=== PATIENT | male | born 1980 | race Two or more races ===

== ENCOUNTER 2018-01-13 04:28 | Emergency (ER) | payer OTHER ==
[2018-01-13] MEDS ORDERED: KETOROLAC TROMETHAMINE INJ/PF 30 MG/1 ML SDV IV ONE (05:05)
--- NOTE | 2018-01-13 05:10 | ER Document Report ---
ED Medical Screen (RME) - General Chief Complaint: Breathing Difficulty Stated Complaint: SHORTNESS OF BREATH Time Seen by Provider: 01/13/18 04:51 Notes: Patient is a 37-year-old male with a chief complaint of lower right-sided chest pain. He states the pain started at 8:30 last night. He attempted to drink jackie prateek, but ended up throwing it up. He denies any past medical history. He has a history of left eye surgery. TRAVEL OUTSIDE OF THE [place] IN LAST 30 DAYS: No - Related Data Allergies/Adverse Reactions: No Known Allergies Allergy (Unverified 06/17/14 09:30) Past Medical History - Immunizations Hx Diphtheria, Pertussis, Tetanus Vaccination: No Physical Exam - Vital signs Vitals: Temp Pulse Resp BP Pulse Ox 97.7 F 101 H 20 148/99 H 98 01/13/18 04:33 01/13/18 04:33 01/13/18 04:33 01/13/18 04:33 01/13/18 04:33 - Respiratory Respiratory status: No respiratory distress - Cardiovascular Rhythm: Regular - Abdominal Tenderness: Tender - Right upper quadrant Course - Vital Signs Vital signs: Temp Pulse Resp BP Pulse Ox 97.7 F 101 H 20 148/99 H 98 01/13/18 04:33 01/13/18 04:33 01/13/18 04:33 01/13/18 04:33 01/13/18 04:33 Doctor's Discharge - Discharge Referrals: TRACY ROSENBAUM MD [Primary Care Provider] - Follow up as needed
--- NOTE | 2018-01-13 05:30 | RADIOLOGY REPORT (SQ) ---
EXAM DESCRIPTION: XR CHEST 1 VIEW COMPLETED DATE/TME: 01/13/2018 05:03 CLINICAL HISTORY: 37 years, Male, chest pain COMPARISON: None. NUMBER OF VIEWS: 1 TECHNIQUE: Frontal view the chest LIMITATIONS: None. FINDINGS: Heart size is normal. Lungs are clear. No pneumothorax. IMPRESSION: Negative chest 2010 [facility] [employer]- All Rights Reserved
[2018-01-13 05:42] LABS: ABSOLUTE BASOPHILS # (AUTO) 0.1 10^3/uL (0.0-0.2); ABSOLUTE EOSINOPHILS # (AUTO) 0.1 10^3/uL (0.0-0.6); ABSOLUTE LYMPHOCYTES (AUTO) 2.2 10^3/uL (0.5-4.7); ABSOLUTE MONOCYTES (AUTO) 0.5 10^3/uL (0.1-1.4); ABSOLUTE NEUT (AUTO) 4.6 10^3/uL (1.7-8.2); BASOPHILS % (AUTO) 0.9 % (0-2); HEMOGLOBIN 15.2 g/dL (13.5-17.0); LYMPHOCYTES % (AUTO) 30.1 % (13-45); MEAN CORPUSCULAR HGB CONC 35.3 g/dL (32.0-36.0); MEAN CORPUSCULAR VOLUME 91 fl (80-97); MONOCYTES % (AUTO) 6.5 % (3-13); PLATELET COUNT 244 10^3/uL (150-450); RED BLOOD COUNT 4.75 10^6/uL (4.35-5.55); SEGMENTED NEUTROPHILS % (AUTO) 61.5 % (42-78); TOTAL CELLS COUNTED % (AUTO) 100 %; WHITE BLOOD COUNT 7.4 10^3/uL (4.0-10.5)
[2018-01-13 06:00] LABS: ALANINE AMINOTRANSFERASE 37 U/L (21-72); ALBUMIN 4.6 g/dL (3.5-5.0); ALKALINE PHOSPHATASE 76 U/L (38-126); ANION GAP 13 (5-19); ASPARTATE AMINO TRANSFERASE 29 U/L (17-59); BILIRUBIN,DIRECT 0.3 mg/dL (0.0-0.4); BILIRUBIN,TOTAL 0.5 mg/dL (0.2-1.3); BLOOD UREA NITROGEN 16 mg/dL (7-20); CALCIUM 9.1 mg/dL (8.4-10.2); CARBON DIOXIDE 23 mmol/L (22-30); CHLORIDE 110 mmol/L (98-107); GLUCOSE 123 mg/dL (75-110); POTASSIUM 4.7 mmol/L (3.6-5.0); SODIUM 146.3 mmol/L (137-145); TOTAL PROTEIN 7.4 g/dL (6.3-8.2)
--- NOTE | 2018-01-13 06:34 | RADIOLOGY REPORT (SQ) ---
EXAM DESCRIPTION: US ABDOMEN LIMITED COMPLETED DATE/TME: 01/13/2018 05:04 CLINICAL HISTORY: 37 years, Male, RUQ pain COMPARISON: None. TECHNIQUE: Transverse and longitudinal sonographic images of the right upper quadrant LIMITATIONS: None. FINDINGS: Echogenic appearance to the liver consistent with fatty infiltrative change. No definitive gallstones. The CBD measures 1.7 mm. No gallbladder wall thickening or pericholecystic fluid. The pancreas is not well seen due to bowel gas. There is no ascites. The visualized portions of the right kidney are unremarkable. IMPRESSION: Fatty infiltrative change to the liver. Remainder is unremarkable. 2011 [email or web address]- All Rights Reserved
--- NOTE | 2018-01-13 07:17 | ER Document Report ---
ED General - General Chief Complaint: Abdominal Pain Stated Complaint: Abdominal pain Time Seen by Provider: 01/13/18 04:51 TRAVEL OUTSIDE OF THE [place] IN LAST 30 DAYS: No - HPI Patient complains to provider of: Abdominal pain Notes: Patient coming in for abdominal pain. Patient states started on the night not feeling good. Patient states it occurred approximately 2-3 hours after eating. Patient on my evaluation complains of right upper quadrant abdominal pain. Patient denies any recent surgery to his abdomen states he does have left eye surgery. Patient states she is having some nausea vomiting no diarrhea no fevers or chills. Patient otherwise upon my evaluation is resting comfortably. - Related Data Allergies/Adverse Reactions: No Known Allergies Allergy (Unverified 06/17/14 09:30) Past Medical History - Social History Smoking Status: Current Every Day Smoker Family History: None Patient has suicidal ideation: No Patient has homicidal ideation: No Renal/ Medical History: Denies: Hx Peritoneal Dialysis Past Surgical History: Reports: Hx Orthopedic Surgery - neck - Immunizations Hx Diphtheria, Pertussis, Tetanus Vaccination: No Review of Systems - Review of Systems Constitutional: No symptoms reported EENT: No symptoms reported Cardiovascular: No symptoms reported Respiratory: No symptoms reported Gastrointestinal: Abdominal pain Genitourinary: No symptoms reported Male Genitourinary: No symptoms reported Musculoskeletal: No symptoms reported Skin: No symptoms reported Hematologic/Lymphatic: No symptoms reported Neurological/Psychological: No symptoms reported -: Yes All other systems reviewed and negative Physical Exam - Vital signs Vitals: Temp Pulse Resp BP Pulse Ox 97.7 F 101 H 20 148/99 H 98 01/13/18 04:33 01/13/18 04:33 01/13/18 04:33 01/13/18 04:33 01/13/18 04:33 Interpretation: Normal - General General appearance: Appears well, Alert - HEENT Head: Normocephalic, Atraumatic Eyes: Normal Pupils: PERRL - Respiratory Respiratory status: No respiratory distress Chest status: Nontender Breath sounds: Normal Chest palpation: Normal - Cardiovascular Rhythm: Regular Heart sounds: Normal auscultation Murmur: No - Abdominal Inspection: Normal Distension: No distension Bowel sounds: Normal Tenderness: Nontender Organomegaly: No organomegaly - Back Back: Normal, Nontender - Extremities General upper extremity: Normal inspection, Nontender, Normal color, Normal ROM , Normal temperature General lower extremity: Normal inspection, Nontender, Normal color, Normal ROM , Normal temperature, Normal weight bearing. No: Velma's sign - Neurological Neuro grossly intact: Yes Cognition: Normal Orientation: AAOx4 Clive Coma Scale Eye Opening: Spontaneous Clive Coma Scale Verbal: Oriented Clive Coma Scale Motor: Obeys Commands Alison Coma Scale Total: 15 Speech: Normal Motor strength normal: LUE, RUE, LLE, RLE Sensory: Normal - Psychological Associated symptoms: Normal affect, Normal mood - Skin Skin Temperature: Warm Skin Moisture: Dry Skin Color: Normal Course - Re-evaluation Re-evalutation: 01/13/18 14:11 The patient presents with abdominal pain without signs of peritonitis or other life-threatening or serious etiology. The patient appears stable for discharge and has been instructed to return immediately if the symptoms worsen in any way , or in 8-12hr if not improved for re-evaluation. The patient has been instructed to return if the symptoms worsen or change in any way. - Vital Signs Vital signs: Temp Pulse Resp BP Pulse Ox 98.2 F 86 16 111/71 97 01/13/18 07:46 01/13/18 07:46 01/13/18 07:46 01/13/18 07:46 01/13/18 07:46 - Laboratory Result Diagrams: 01/13/18 05:33 01/13/18 05:33 Laboratory results interpreted by me: 01/13/18 05:33 Sodium 146.3 H Chloride 110 H Glucose 123 H Discharge - Discharge Clinical Impression: RUQ pain Condition: Good Disposition: HOME, SELF-CARE Instructions: Abdominal Pain ([facility]) Additional Instructions: Your evaluation does not show any surgical or infectious pathology. Your ultrasound was negative no signs of inflammation of the gallbladder no gallstones your lab work does not show any signs of infection. I believe that your symptoms may be coming from inflammation of the last part of the stomach the duodenum we will treat this possible inflammation with omeprazole. The only way to prove that the inflammation exists is to have an EGD performed. Another etiology of your abdominal pain could be due to a dysfunctional gallbladder the only way to have that tested will be to have a HIDA scan. I would highly recommend following up with your primary care physician to have these tests performed HIDA scan and EGD. Continue with her hydrocodone at home for severe pain Tylenol Motrin for regular pain. Would recommend a clear liquid diet for the next 12-24 hours. Return to ER symptoms worsen. Prescriptions: Ondansetron [Zofran Odt 4 mg Tablet] 4 mg PO Q4HP PRN #30 tab.rapdis PRN Reason: Omeprazole 20 mg PO DAILY #30 tab.[email or web address] Referrals: TRACY ROSENBAUM MD [Primary Care Provider] - Follow up in 3-5 days
[2018-01-13 07:48] VITALS: BP 111/71
--- NOTE | 2018-01-13 09:53 | EKG REPORT ---
SEVERITY:- NORMAL ECG - SINUS RHYTHM : Confirmed by: Niyah Salinas 13-Jan-2018 09:52:42
== END 2018-01-13 07:54 | disposition home or self-care (01) ==
LOC: ER 04:28
DX: R10.11 Right upper quadrant pain (principal); R11.2 Nausea with vomiting, unspecified; F17.200 Nicotine dependence, unspecified, uncomplicated
CPT/HCPCS: 93005; 99285; 96374; 36415; 83690; 85025; 80053; 71045; 76705; 93010; J1885

== ENCOUNTER 2018-07-23 00:49 | Emergency (ER) | payer OTHER ==
[2018-07-23] MEDS ORDERED: ACETAMINOPHEN 325 MG TABLET PO ONE (01:16)
[2018-07-23] MEDS ORDERED: PENICILLIN G BENZATHINE 1.2 MILLION UNIT/2 ML DISP.SYRIN IM ONE ×2 (02:32→02:42)
[2018-07-23] MEDS ORDERED: IBUPROFEN 800 MG TABLET PO ONE (02:32)
[2018-07-23] MEDS ORDERED: DEXAMETHASONE SOD PHOS INJ 10 MG/1 ML VIAL IM ONE (02:32)
--- NOTE | 2018-07-23 02:43 | ER Document Report ---
HPI - HPI Time Seen by Provider: 07/23/18 02:04 Pain Level: 4 Context: Patient is a 38-year-old male that comes to the emergency department for chief complaint of sore throat, fever, and body aches for the past 3 days. He denies headache, shortness of breath, notable cough, abdominal pain, vomiting. He denies any obvious sick contacts. 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 Past Medical History - General Information source: Patient - Social History Smoking Status: Never Smoker Drug Abuse: None Lives with: Alone Family History: None - Medical History Medical History: Negative Renal/ Medical History: Denies: Hx Peritoneal Dialysis Past Surgical History: Reports: Hx Orthopedic Surgery - neck - Immunizations Hx Diphtheria, Pertussis, Tetanus Vaccination: No Vertical Provider Document - CONSTITUTIONAL General Appearance: WD/WN, No Apparent Distress - INFECTION CONTROL TRAVEL OUTSIDE OF THE [place] IN LAST 30 DAYS: No - HEENT HEENT: Atraumatic, Normocephalic, PERRLA. negative: Conjuctival Injection, Dental Injury, Normal ENT Exam - Exudative pharyngitis noted, uvula normal, airway clear, no evidence of peritonsillar abscess. Ears unremarkable, ENT exam otherwise unremarkable. - NECK Neck: Normal Inspection. negative: Lymphadenopathy-Left, Lymphadenopathy-Right - RESPIRATORY Respiratory: Breath Sounds Normal, No Respiratory Distress - CARDIOVASCULAR Cardiovascular: Regular Rate, Regular Rhythm, Tachycardia - GI/ABDOMEN Gastrointestinal: Abdomen Soft, Abdomen Non-Tender - BACK Back: Normal Inspection - MUSCULOSKELETAL/EXTREMETIES Musculoskeletal/Extremeties: MAEW, FROM, Non-Tender - NEURO Level of Consciousness: Awake, Alert, Appropriate - DERM Integumentary: Warm, Dry, No Rash Course - Re-evaluation Re-evalutation: Patient has no cough, does have a fever, obvious exudates on exam, anterior cervical adenopathy. Nontender abdomen/spleen area. He is alert, surprisingly well-appearing. Strep throat test is actually negative. I discussed with patient. Because of his presentation we have decided to proceed with treatment for suspected strep throat infection with penicillin G and dexamethasone. Discussed the possibility that this is viral and the precautions regarding this. Discussed primary care follow-up and return precautions. Patient states understanding and agreement. - Vital Signs Vital signs: Temp Pulse Resp BP Pulse Ox 102.5 F H 120 H 18 138/89 H 97 05/23/19 01:50 07/23/18 01:13 07/23/18 01:13 07/23/18 01:13 07/23/18 01:13 Discharge - Discharge Clinical Impression: Exudative pharyngitis, Anterior cervical adenopathy Fever Qualifiers: Fever type: unspecified Qualified Code(s): R50.9 - Fever, unspecified Condition: Stable Disposition: HOME, SELF-CARE Additional Instructions: Your symptoms and evaluation meet criteria for strep throat. You have been treated for this. There is a possibility that this is viral, if it is it may last longer, you may also experience secondary effects such as swelling of the spleen. See mononucleosis directions below. Take Tylenol or ibuprofen for pain, drink plenty fluids, and rest. Follow-up with primary care. Return for any concerning symptoms. Mononucleosis This is a viral infection which can last several weeks. Typically, a week or two of tiredness precedes a sore throat, swollen glands, fever, and aches. Sometimes there's a rash. In severe cases, swollen spleen and liver develop. There is no cure for mononucleosis. You should rest, drink plenty of fluids, and avoid contact sports until you are better. A follow-up examination is usually done in about a week. Further laboratory testing may be necessary then. See the doctor if there is significant worsening of the symptoms or onset of new symptoms such as severe headache, stiff neck, generalized or severe abdominal pain, or faintness. Referrals: [facility] [Primary Care Provider] - Follow up as needed
[2018-07-23 03:43] VITALS: BP 120/74
== END 2018-07-23 03:44 | disposition home or self-care (01) ==
LOC: ER 00:49
DX: J02.9 Acute pharyngitis, unspecified (principal); R50.9 Fever, unspecified; R59.0 Localized enlarged lymph nodes; M79.10 Myalgia, unspecified site
CPT/HCPCS: 99283; 96372; 87070; 87880; 87077; J0561; J1100